=== PATIENT | female | born 1990 | race Caucasian/White ===

== ENCOUNTER 2025-06-08 10:24 | Outpatient (REF) | payer MEDICAID, SELFPAY ==
--- OUTSIDE RECORDS SUMMARY | 2025-06-08 12:29 | XMS_ITS | Encounter Summary ---
Author Organization [employer] Address [address] [facility] [address] [place] [address] Care Team Providers Care Mannequin Mold Maker Name Role Phone Kayla Thomas MD Primary Care Provide r Reason for Visit * Reason Onset Date Comments Med Refill 12/19/2024 Encounter Details Date Type Department Care Team ([facility] st Contact Info) Description 12/19/2024 Refill [facility] [address] [place] [address] Nya Hardy NP [address] [place] [address] Bipolar affective disorder, remission status unspecified ([facility]) Social History Tobacco Use Types Packs/Day Years Used Date Smoking Tobacco: Never Smokeless Tobacco: Never Alcohol Use Standard Drinks/Week Comments Never 0 (1 standard drink = 0.6 oz pur e alcohol) Depression Answer Date Recorded Patient Health Questionnaire-9 Score 21 11/02/2024 Patient Health Questionnaire-9 Score 21 11/02/2024 Last PHQ-9: Questionnaire Data Not on file 0 11/02/2024 Housing Stability Answer Date Recorded What is your housing situation today? I have marquez davis 06/23/[address] you li ve. Do you have problems with any of the following? None of the above 06/23/2023 Food Insecurity Answer Date Recorded Within the past 12 months, y ou worried that your food would run out before you got money to buy more: Never True 06/23/2023 Within the past 12 months,th e food you bought just didn't last and you didn't have enough money to get more: Never True 08/2022 Transportation Answer Date Recorded In the past 12 months, has l ack of transportation kept you from medical appts, meetings, work or from getting things needed for daily living? Yes, it has kept me from medical appointments or getting medications. 05/30/2023 Utilities Answer Date Recorded In the past 12 months, has t he electric, gas, oil or water company threatened to shut off services in your home? No 06/23/2023 Depression Answer Date Recorded Patient Health Questionnaire-2 Score 5 11/02/2024 Comments Unknown Sex and Gender Information Value Date Recorded Sex Assigned at Female 06/22/2022 10:37 AM EDT Legal Sex Female 10:37 AM EDT Gender Identity Female 06/22/2022 10:37 AM EDT Sexual Orientation Straight 06/23/2022 7: 01 PM EDT Sexual Orientation Lesbian or Srinivasan 06/23/2022 7: 01 PM EDT documented as of this encounter Plan of Treatment Not on file documented as of this encounter Visit Diagnoses Diagnosis Bipolar affective disorder, remission status unspecified (CMS/HCC) ([facility]) documented in this encounter Additional Health Concerns Assessment Noted Time PHQ-9 Depression Total Score: 21 025 4:56 PM EDT documented as of this encounter Care Teams Mannequin Mold Maker Relationship Specialty Start Date End Date Kayla Thomas MD [address] [place] [address] PCP - General Family Medicine 09/25/20 documented as of this encounter
--- OUTSIDE RECORDS SUMMARY | 2025-06-08 12:29 | XMS_ITS | Clinical Summary ---
Author Organization [employer] Address [address] [facility] [address] [place] [address] Care Team Providers Care Director Of Creative Services Name Role Phone Kayla Thomas MD Primary Care Provide r Allergies No known active allergies Medications * This document contains information received from the source organization and may not represent a complete record from that organization. Cold Sore Products (lip balm) ointmentIndicati ons:Lip dryness Apply topically if needed for dry skin or irritation. 15 g 1 3 Active Acetaminophen Extra Strength 500 MG tabletIndication s:Migraine without aura and without status migrainosus, not intractable TAKE 2 TABLETS (1,000 MG) BY MOUTH EVERY 8 (EIGHT) HOURS IF NEEDED FOR MILD PAIN FOR UP TO 10 DAYS. 40 tablet 3 Active SUMAtriptan (Imitrex) 25 MG tabletIndication s:Nonintractable headache, unspecified chronicity pattern, unspecified headache type TAKE 1 TABLET BY MOUTH 1 TIME IF NEEDED FOR MIGRAINE MAY REPEAT DOSE ONCE IN 2 HOURS IF NO RELIEF MAX 2 DOSES IN 24 HOURS. 15 tablet 1 3 Active loratadine (Claritin) 10 MG tabletIndication s:Seasonal allergies TAKE 1 TABLET BY MOUTH EVERY DAY IN THE MORNING 90 tablet 1 3 Active QUEtiapine Fumarate 150 MG tabletIndication s:Bipolar affective disorder, remission status unspecified (CMS/HCC) (HCC) Take 1 tablet (150 mg) by mouth at bedtime. 30 tablet 1 5 Active hydrOXYzine pamoate (Vistaril) 25 MG capsuleIndicatio ns:MARIA TERESA (generalized anxiety disorder) Take 1 capsule (25 mg) by mouth if needed in the morning and at bedtime for anxiety. 30 capsule 5 Active buPROPion (Wellbutrin) 75 MG tabletIndication s:Severe major depression (CMS/HCC) (HCC) Take 1 tablet (75 mg) by mouth 2 times daily. 60 tablet 1 5 Active Active Problems Problem Noted Date Diagnosed Date Telangiectasias 02/07/2025 Assessment & Plan (02/07/2025 2:30 PM EDT): I advised to use sunscreen every day and try to maintain area covered I will order some blood work and contact patient back I will refer patient to dermatology Severe major depression (CMS/HCC) 11/02/2024 MARIA TERESA (generalized anxiety disorder) 11/02/2024 Migraine without aura and wi thout status migrainosus, not intractable 12/15/2022 Assessment & Plan (12/15/2022 11:31 AM EDT): I advise to avoid migraine triggers like red wine, chocolate, cheese, strong perfumes, advise to maintain hydration I advise to try sumatriptan in case of a bad episode She may continue with acetaminophen for minor episode Lip dryness 12/15/2022 Seasonal allergies 12/15/2022 Assessment & Plan (12/15/2022 11:31 AM EDT): Avoid triggers loratadine 10mg daily Impacted cerumen of left ear 12/15/2022 Assessment & Plan (12/15/2022 11:31 AM EDT): Debrox for 5 days then come for nurse visit for ear lavage Bipolar disorder 12/11/2022 Rash 12/11/2022 Vitamin D deficiency 12/11/2022 Encounters Date Type Department Care Team Description 04/11/2025 Travel 03/14/2025 Refill [facility] [address] [place] [address] Kayla Thomas MD Severe major depression (CMS/HCC) from Last 3 Months Social History Tobacco Use Types Packs/Day Years Used Date Smoking Tobacco: Never Smokeless Tobacco: Never Tobacco Cessation:Counseling Given: Not Answered Alcohol Use Standard Drinks/Week Comments Never 0 [...] or Srinivasan 06/23/2022 7: 01 PM EDT Last Filed Vital Signs Vital Sign Reading Time Taken Comments Blood Pressure 102/60 02/07/2025 11:23 AM EDT Pulse 72 02/07/2025 11:23 AM EDT Temperature 36.6 C (97.8 F) 02/07/2025 11:23 AM EDT Respiratory Rate 16 02/07/2025 11:23 AM EDT Oxygen Saturation 99% 11/01/2024 11:28 AM EDT Inhaled Oxygen Concentration - - Weight 73.2 kg (161 lb 6.4 oz) 02/07/2025 11:23 AM EDT Height 149.9 cm (4' 11 ) 02/07/2025 11:23 AM EDT Body Mass Index 32.6 02/07/2025 11:23 AM EDT Plan of Treatment Health Maintenance Due Date Last Done Comments Dental Oral Exam 1989 Dental Prophylaxis 1989 Dental X-Ray: Bitewings 1989 Dental X-Ray: Full Mouth 1989 Alcohol/Substance Use Screening 2001 Family Planning (PISQ) 2004 HPV Vaccines (1 - 3-dose series) 2004 Hepatitis C Screening 10/22/2007 DTaP/Tdap/Td Vaccines (1 - Tdap) 2008 Hepatitis B Vaccines (1 of 3 - 19+ 3-dose series) 2008 Pap Smear 2010 Cervical Cancer Screening 10/22/2019 HPV/Cotest 10/22/2019 SDOH Screening 12/16/2023 12/15/2022 COVID-19 Vaccine (1 - 2023-2 5 season) 2025 Influenza Vaccine (#1) 2025 Depression Monitoring 05/05/2025 11/02/2024 , 11/02/2024 Tobacco Screening 01/16/2026 01/16/2025 Disability Screening 04/11/2026 04/11/2025 Zoster Vaccines (1 of 2) 10/22/2039 RSV Patients and Patients Aged 60 years or older (1 - 1-dose 75+ series) 2064 HIV Screening Completed 09/19/2020 HIB Vaccines Aged Out No longer eligi ble based on patient's age to complete this topic Hepatitis A Vaccines Aged Out No long er eligible based on patient's age to complete this topic IPV Vaccines Aged Out No longer eligi ble based on patient's age to complete this topic Meningococcal B Vaccine Aged Out No l onger eligible based on patient's age to complete this topic Meningococcal Vaccine Aged Out No nabeel rosina eligible based on patient's age to complete this topic Pneumococcal Vaccine: Pediatrics (0 to 5 Years) and At-Risk Patients (6 to 49) Years Aged Out No longer eligible b ased on patient's age to complete this topic RSV under 20 months Aged Out No longe r eligible based on patient's age to complete this topic Rotavirus Vaccines Aged Out No longer eligible based on patient's age to complete this topic Procedures Procedure Name Priority Date/Time Associated Diagnosis Comments HIV 1/2 ANTIGEN/ANTIBODY, FOURTH GENERATION W/RFL Routine 09/19/2020 11:39 AM EST from Last 3 Months or Most Recently Relevant to Health Maintenance Results * HIV 1/2 ANTIGEN/ANTIBODY,FOURTH GENERATION W/RFL (09/19/2020 11:39 AM EST) HIV-1/2 ANTIGEN AND ANTIBODIES, 4TH GENERATION W/ REFLEX NON-REACT FILIBERTO NON-REACT FILIBERTO [facility] Comment: HIV-1 antigen and HIV-1/HIV-2 antibodies were not detected. There is no laboratory evidence of HIV infection. PLEASE NOTE: This information has been disclosed to you from records whose confidentiality may be protected by state law. If your state requires such protection, then the state law prohibits you from making any further disclosure of the information without the specific written consent of the person to whom it pertains, or as otherwise permitted by law. A general authorization for the release of medical or other information is NOT sufficient for this purpose. For additional information please refer to http://[email or web address]/faq/JIF292 (This link is being provided for informational/ educational purposes only.) The performance of this assay has not been clinically validated in patients less than 2 years old. 09/19/2020 11:3 9 AM EST us Kayla Miguel MD LAB BLOOD ORDERABLES Final Result [facility] [address] [place] [address], from Last 3 Months or Most Recently Relevant to Health Maintenance [facility] Care Teams Director Of Creative Services Relationship Specialty Start Date End Date Kalya Thomas MD [address] [place] [id number] PCP - General Family Medicine 09/25/20
--- OUTSIDE RECORDS SUMMARY | 2025-06-08 12:30 | XMS_ITS | Encounter Summary ---
Author Organization [employer] Address [address] [facility] 7[address] [place] [address] Care Team Providers Care Skin Lifter Bacon Name Role Phone Kayla Thomas MD Primary Care Provide r Reason for Visit * Reason Comments Med Refill Encounter Details Date Type Department Care Team ([facility] st Contact Info) Description 01/15/2023 Refill [facility] [address] [place], [place] [phone] Kayla Thomas MD [address] [place], [place] [phone] Impacted cerumen of left ear Social History Tobacco Use Types Packs/Day Years Used Date Smoking Tobacco: Never Smokeless Tobacco: Never Alcohol Use Standard Drinks/Week Comments Never 0 (1 standard drink = 0.6 oz pur e alcohol) Depression Answer Date Recorded Patient Health Questionnaire-2 Score 0 12/15/2022 Comments Unknown Sex and Gender Information Value Date Recorded Sex Assigned at Female 06/22/2022 10:37 AM EDT Legal Sex Female 10:37 AM EDT Gender Identity Female 06/22/2022 10:37 AM EDT Sexual Orientation Straight 06/23/2022 7: 01 PM EDT Sexual Orientation Lesbian or Srinivasan 06/23/2022 7: 01 PM EDT COVID-19 Exposure Response Date Recorded In the last 10 days, have yo u been in contact with someone who was confirmed or suspected to have Coronavirus/COVID-19? No / Unsure 12/30/2022 8:50 AM EDT documented as of this encounter Plan of Treatment Not on file documented as of this encounter Visit Diagnoses Diagnosis Impacted cerumen of left ear Impacted cerumen documented in this encounter Care Teams Skin Lifter Bacon Relationship Specialty Start Date End Date Kayla Thomas MD [address] [place] [phone] PCP - General Family Medicine 09/25/20 documented as of this encounter
--- OUTSIDE RECORDS SUMMARY | 2025-06-08 12:30 | XMS_ITS | Encounter Summary ---
Author Organization [employer] Address [address] [facility] [address] [place] [address] Care Team Providers Care Sheet Rock Taper Name Role Phone Kayla Thomas MD Primary Care Provide r Reason for Visit * Reason Comments Med Refill Encounter Details Date Type Department Care Team ([facility] st Contact Info) Description 01/21/2023 Refill [facility] [address] [place], [place] [phone] Kayla Thomas MD [address] [place], [place] [phone] Impacted cerumen of left ear Social History [...] cerumen documented in this encounter Care Teams Sheet Rock Taper Relationship Specialty Start Date End Date Kayla Thomas MD [address] [place] [phone] PCP - General Family Medicine 09/25/20 documented as of this encounter
[2025-06-08 13:21] LABS: MANUAL DIFF FLAG NO
[2025-06-08 13:21] LABS: MANUAL DIFF FLAG NO
[2025-06-08 13:49] LABS: Hematocrit 43.3 % (37.0-47.0); Hemoglobin 14.7 g/dl (12.0-16.0); Imm Gran Abs Auto 0.02 X10*3/uL (0.00-0.03); Imm Gran Pct Auto 0.3 % (0.0-0.4); Lymphocytes Absolute Auto 2.5 X10*3/uL (1.2-4.9); Mean Corpuscular HGB Conc 33.9 g/dl (31.0-35.0); Mean Corpuscular Hemoglobin 31.2 pg (27.0-33.0); Mean Corpuscular Volume 91.9 fL (80.0-98.0); NRBC Abs Auto 0.000 X10*3/uL (0.0-0.012); NRBC Pct Auto 0.0 /100WBC (0.0-0.2); Platelet Count 433 X10*3/uL (160-400); Red Blood Count 4.71 X10*6/uL (4.20-5.50); White Blood Count 7.6 X10*3/uL (4.8-10.8)
[2025-06-08 13:51] LABS: Hematocrit 42.8 % (37.0-47.0); Hemoglobin 14.7 g/dl (12.0-16.0); Imm Gran Abs Auto 0.01 X10*3/uL (0.00-0.03); Imm Gran Pct Auto 0.1 % (0.0-0.4); Lymphocytes Absolute Auto 2.4 X10*3/uL (1.2-4.9); Mean Corpuscular HGB Conc 34.3 g/dl (31.0-35.0); Mean Corpuscular Hemoglobin 31.5 pg (27.0-33.0); Mean Corpuscular Volume 91.6 fL (80.0-98.0); NRBC Abs Auto 0.000 X10*3/uL (0.0-0.012); NRBC Pct Auto 0.0 /100WBC (0.0-0.2); Platelet Count 440 X10*3/uL (160-400); Red Blood Count 4.67 X10*6/uL (4.20-5.50); White Blood Count 7.8 X10*3/uL (4.8-10.8)
[2025-06-08 17:08] LABS: Alanine Aminotransferase 22 U/L (0-31); Albumin Level 5.0 g/dL (3.5-5.0); Alkaline Phosphatase 109 U/L (39-117); Anion Gap 16 (12-20); Aspartate Amino Transferase 22 U/L (5-31); Blood Urea Nitrogen 6 mg/dL (9-16); Calcium 9.9 mg/dL (8.4-10.2); Carbon Dioxide 25 mmol/L (22-29); Chloride 105 mmol/L (96-108); Cholesterol 285 mg/dL (<200); Estimated Glomerular Filt Rate > 60; HDL Cholesterol 47 mg/dL (>40); Potassium 4.2 mmol/L (3.3-5.1); Sodium 142 mmol/L (135-145); Total Protein 8.1 g/dL (6.5-8.0); Triglycerides 162 mg/dL (<150)
[2025-06-08 17:14] LABS: Alanine Aminotransferase 24 U/L (0-31); Albumin Level 5.0 g/dL (3.5-5.0); Alkaline Phosphatase 109 U/L (39-117); Anion Gap 15 (12-20); Aspartate Amino Transferase 26 U/L (5-31); Blood Urea Nitrogen 6 mg/dL (9-16); Calcium 10.0 mg/dL (8.4-10.2); Carbon Dioxide 26 mmol/L (22-29); Chloride 105 mmol/L (96-108); Cholesterol 286 mg/dL (<200); Estimated Glomerular Filt Rate > 60; HDL Cholesterol 47 mg/dL (>40); Potassium 4.3 mmol/L (3.3-5.1); Sodium 142 mmol/L (135-145); Total Protein 8.0 g/dL (6.5-8.0); Triglycerides 163 mg/dL (<150)
[2025-06-09 09:24] LABS: HBS Num1 0.78 mIU/mL (0-7.99); HBc Num1 0.10 S/CO (0.00-0.79); HBsAGNum1 0.33 S/CO (0.00-0.99); HIV Num 1 0.06 S/CO (0.00-0.99); Hepatitis A Antibody IgM 0.17 Index (0-0.79); Hepatitis B Surface Antigen Negative (Negative); ~HepC Num1 0.07 S/CO (0.00-0.79); ~Hepatitis A Antibody IgM Nonreactive (Nonreactive); ~Hepatitis B Surface Antibody NONREACTIVE (Nonreactive); ~Hepatitis C Antibody Nonreactive (Nonreactive)
== END 2025-06-08 10:25 | disposition home or self-care (01) ==
LOC: HO.HHCL 10:24
PROVIDERS: PCP Internal Medicine; Referring Provider Registered Nurse Psychiatric/Mental Health; Visit Provider Internal Medicine
DX: I78.1 Nevus, non-neoplastic (principal); Z11.4 Encounter for screening for human immunodeficiency virus [HIV]; Z11.59 Encounter for screening for other viral diseases; Z79.899 Other long term (current) drug therapy
CPT/HCPCS: 36415; 80048; 80053; 80061; 80076; 82248; 82306; 83036; 84443; 85025; 86704; 86706; 86709; 86803; 87340; 87389